=== PATIENT | male | born 1960 | race Caucasian/White ===

== ENCOUNTER → 2023-08-18 | Outpatient (CLI) | payer BC | LOC: LAB SHORT 17:38 → LAB 17:38 | DX: L08.9 Local infection of the skin and subcutaneous tissue, unspecified (principal) | CPT/HCPCS: 87070; 87077; 87205 ==

== ENCOUNTER → 2023-09-01 | Outpatient (CLI) | payer BC | LOC: LAB SHORT 17:18 → LAB 17:18 | DX: L08.9 Local infection of the skin and subcutaneous tissue, unspecified (principal) | CPT/HCPCS: 87070; 87205 ==

== ENCOUNTER → 2024-11-03 | Outpatient (CLI) | payer MEDICARE | LOC: LAB 17:38 → LAB SHORT 17:38 | DX: R31.9 Hematuria, unspecified (principal) | CPT/HCPCS: 87077; 87086; 87186 ==

== ENCOUNTER → 2025-01-17 | Outpatient (CLI) | payer MEDICARE ==
[2025-01-18 10:21] LABS: Source, Urine Clean Catch
[2025-01-18 11:16] LABS: Glucose Qualitative, Urine Neg (Normal); Ketones, Urine Neg (Neg); Leukocyte Esterase, Urine Neg (Neg); Nitrite, Urine Neg (Neg); Protein, Urine Neg (Neg); Specific Gravity, Urine 1.015 (1.003-1.022); Urobilinogen, Urine NORM (Normal)
[2025-01-18 11:17] LABS: Appearance, Urine Hazy (Clear); Bilirubin, Urine Neg (Neg); Blood, Urine 2+ (Neg); Color, Urine Yellow (P-Yellow); Squamous Epithelial Cells Few /hpf (Few); White Blood Cells, Urine 0-2 /hpf (0-5)
== END ==
LOC: LAB SHORT 17:00 → LAB 17:00 → LAB SHORT 01-18 08:22
PROVIDERS: Physician Assistant
DX: R31.0 Gross hematuria (principal)
CPT/HCPCS: 81001; 87086

== ENCOUNTER 2025-07-20 06:03 | Inpatient (IN) | payer MEDICARE ==
[~2025-07-20] VITALS: Ht 172.7 cm; Wt 76.7 kg
[2025-07-20 06:35] LABS: BASOPHILS ABSOLUTE AUTO 0.01 K/mm3 (0.00-0.23); BASOPHILS PERCENT AUTO 0 % (0-2); EOSINOPHILS ABSOLUTE AUTO 0.01 K/mm3 (0.00-0.68); EOSINOPHILS PERCENT AUTO 0 % (0-6); Hematocrit 46.0 % (37.0-53.0); Hemoglobin 14.4 g/dL (13.5-17.5); IMMATURE GRAN ABSOLUTE AUTO 0.04 K/mm3 (0.00-0.10); IMMATURE GRAN PERCENT AUTO 1 % (0-1); LYMPHOCYTES ABSOLUTE AUTO 0.34 K/mm3 (0.84-5.20); LYMPHOCYTES PERCENT AUTO 4 % (21-46); MONOCYTES ABSOLUTE AUTO 0.65 K/mm3 (0.16-1.47); MONOCYTES PERCENT AUTO 8 % (4-13); Mean Corpuscular HGB Conc 31.3 g/dL (31.5-36.5); Mean Corpuscular Volume 79 fL (80-100); NEUTROPHILS ABSOLUTE AUTO 7.11 K/mm3 (1.96-9.15); NEUTROPHILS PERCENT AUTO 87 % (41-73); NRBC ABSOLUTE 0.00 K/mm3 (0.00-0.02); NRBC Auto 0.0 /100 WBC (0.0-0.2); Platelet Count 329 K/mm3 (150-400); RDW Coefficient Variation 22.8 % (11.7-14.2); RDW Standard Deviation 62.8 fL (35.1-46.3)
[2025-07-20] MEDS ORDERED: NS 1,000 ML IV SCH ×2 (06:45→11:35)
[2025-07-20 06:57] LABS: Alanine Aminotransfer (ALT/SGP 20.0 U/L (12-78); Albumin, Blood 3.6 g/dL (3.4-5.0); Albumin/Globulin Ratio 0.9 (0.8-1.8); Anion Gap 21.0 mmol/L (3-11); Aspartate Aminotrans (AST/SGOT 30.0 U/L (12-37); Bilirubin, Total 1.3 mg/dL (0.1-1.0); Blood Urea Nitrogen 18.0 mg/dL (8-24); CO2, Blood 18.0 mmol/L (21-32); Calcium, Blood 9.9 mg/dL (8.5-10.1); Chloride, Blood 104.0 mmol/L (98-108); Creatinine, Blood 0.98 mg/dL (0.60-1.20); Globulin, Blood 4.1 g/dL (2.2-4.0); Glucose, Blood 146.0 mg/dL (70-99); Magnesium, Blood 2.2 mg/dL (1.6-2.4); Potassium, Blood 4.5 mmol/L (3.5-5.5); Sodium, Blood 138.0 mmol/L (136-145); Total Protein, Blood 7.7 g/dL (6.4-8.2)
[2025-07-20] MEDS ORDERED: FLU VACC TS2025-26(6MOS UP)/PF 45 MCG/0.5 ML SYRINGE IM SCH (09:05)
[2025-07-20] MEDS ORDERED: HydrALAZINE HCl 20 MG / ML 1ML Vial IV PRN (11:35)
[2025-07-20 11:55] VITALS: BP 158/87
[2025-07-20 13:00] LABS: LDL/HDL RATIO 2.5
[2025-07-20 13:01] LABS: CHOL/HDL RATIO 4.6; Cholesterol 175 mg/dL (50-200); HDL Cholesterol 38 mg/dL (>39); Low Density Lipoprotein Chol 96 mg/dL (0-110); Triglycerides 205 mg/dL (30-160); Very Low Density Lipoprot Chol 41 mg/dL (6-32)
--- NOTE | 2025-07-20 13:05 | NUR ---
PT ARRIVED TO UNIT APPROXIMATELY 1100. PT IS AOX4. NO C/O CHEST PAIN/PRESSURE. NO C/O PAIN. SKIN ASSESSMENT COMPLETED WITH 2ND RN. WOUNDS AND BRUISING PHOTOGRAPED, DOCUMENTED AND PLACED IN CHART. PT ON RA, REPORTS NO O2 USE AT HOME. PT WEARING GLASSES AND HAS FULL SET OF DENTURES. URINAL AT BEDSIDE AND PT ABLE TO USE WITHOUT ASSISTANCE. CALL LIGHT WITHIN REACH AND PT ABLE TO MAKE NEEDS KNOWN.
[2025-07-20 14:52] LABS: Anion Gap 15.0 mmol/L (3-11); Blood Urea Nitrogen 18.0 mg/dL (8-24); CO2, Blood 21.0 mmol/L (21-32); Calcium, Blood 9.1 mg/dL (8.5-10.1); Chloride, Blood 106.0 mmol/L (98-108); Creatinine, Blood 0.83 mg/dL (0.60-1.20); Glucose, Blood 124.0 mg/dL (70-99); Potassium, Blood 3.1 mmol/L (3.5-5.5); Sodium, Blood 139.0 mmol/L (136-145)
[2025-07-20 15:42] VITALS: BP 153/90
--- NOTE | 2025-07-20 16:12 | NUR ---
home med rec this rn called [facility] and requested for home med rec to be faxed over at 1200 on 07/20/25. home med rec not complete.
--- NOTE | 2025-07-20 16:21 | NUR ---
update-home med rec this rn called [facility] again at 1622 to ask about the med rec and the administrative receptionist said she sent an urgent message back.
[2025-07-20] MEDS ORDERED: Insulin Regular 100 UNIT/ML 10ML Vial SC SCH (16:30)
[2025-07-20] MEDS ORDERED: ATOR20 PO (17:45)
[2025-07-20] MEDS ORDERED: AMLO10 PO (17:45)
[2025-07-20] MEDS ORDERED: BASAGLAR K100 UNIT/1 SC (17:46)
[2025-07-20] MEDS ORDERED: TAMS.4ER PO (17:50)
[2025-07-20] MEDS ORDERED: ZESTORETIC 20-121 EA PO (17:50)
[2025-07-20] MEDS ORDERED: METF500 PO (17:50)
--- NOTE | 2025-07-20 18:03 | NUR ---
SHIFT SUMMARY VSS. NO C/O PAIN. NO C/O CHEST PAIN/PRESSURE. TROPE ELEVATED BUT TRENDING DOWN (LAST 316). URINAL AT BEDSIDE AND PT ABLE TO USE WITHOUT ASSISTANCE. PT HAS FULL DENTURES AND GLASSES IN PLACE. AOX4. POTASSIUM 3.1. PT GIVEN 40MEQ PO POTASSIUM. PT RESTING COMFORTABLY IN BED. CALL LIGHT WITHIN REACH AND ABLE TO MAKE ALL NEEDS KNOWN.
[2025-07-20 19:40] LABS: Anion Gap 15.0 mmol/L (3-11); Blood Urea Nitrogen 16.0 mg/dL (8-24); CO2, Blood 22.0 mmol/L (21-32); Calcium, Blood 9.2 mg/dL (8.5-10.1); Chloride, Blood 103.0 mmol/L (98-108); Creatinine, Blood 0.85 mg/dL (0.60-1.20); Glucose, Blood 107.0 mg/dL (70-99); Potassium, Blood 3.2 mmol/L (3.5-5.5); Sodium, Blood 137.0 mmol/L (136-145)
[2025-07-20 19:52] VITALS: BP 125/89
[2025-07-20 23:03] VITALS: BP 126/81
[2025-07-21 03:19] VITALS: BP 142/95
[2025-07-21 04:10] LABS: BASOPHILS ABSOLUTE AUTO 0.00 K/mm3 (0.00-0.23); BASOPHILS PERCENT AUTO 0 % (0-2); EOSINOPHILS ABSOLUTE AUTO 0.01 K/mm3 (0.00-0.68); EOSINOPHILS PERCENT AUTO 0 % (0-6); Hematocrit 39.9 % (37.0-53.0); Hemoglobin 12.8 g/dL (13.5-17.5); IMMATURE GRAN ABSOLUTE AUTO 0.01 K/mm3 (0.00-0.10); IMMATURE GRAN PERCENT AUTO 0 % (0-1); LYMPHOCYTES ABSOLUTE AUTO 0.66 K/mm3 (0.84-5.20); LYMPHOCYTES PERCENT AUTO 12 % (21-46); MONOCYTES ABSOLUTE AUTO 0.39 K/mm3 (0.16-1.47); MONOCYTES PERCENT AUTO 7 % (4-13); Mean Corpuscular HGB Conc 32.1 g/dL (31.5-36.5); Mean Corpuscular Volume 80 fL (80-100); NEUTROPHILS ABSOLUTE AUTO 4.32 K/mm3 (1.96-9.15); NEUTROPHILS PERCENT AUTO 80 % (41-73); NRBC ABSOLUTE 0.00 K/mm3 (0.00-0.02); NRBC Auto 0.0 /100 WBC (0.0-0.2); Platelet Count 208 K/mm3 (150-400); RDW Coefficient Variation 22.6 % (11.7-14.2); RDW Standard Deviation 63.3 fL (35.1-46.3)
[2025-07-21 04:51] LABS: Anion Gap 14.0 mmol/L (3-11); Blood Urea Nitrogen 15.0 mg/dL (8-24); CO2, Blood 22.0 mmol/L (21-32); Calcium, Blood 8.7 mg/dL (8.5-10.1); Chloride, Blood 105.0 mmol/L (98-108); Creatinine, Blood 0.75 mg/dL (0.60-1.20); Glucose, Blood 85.0 mg/dL (70-99); Potassium, Blood 3.7 mmol/L (3.5-5.5); Sodium, Blood 137.0 mmol/L (136-145); Thyroid Stimulating Hormone 0.579 uIU/mL (0.360-4.800)
--- NOTE | 2025-07-21 05:14 | NUR ---
SHIFT SUMMARY A/OX4, VERBALIZES NEEDS, COOPERATIVE WITH CARE, DENIES PAIN. ON ROOM AIR, SATS ABOVE 95%. ON CONTINUOUS CARDIAC TELEMETRY, IN A SINUS RHYTHM, VSS. PT DENIES CHEST PAIN/PRESSURE. NO ACUTE EVENTS OVERNIGHT. ECHO AND STRESS TEST TO BE COMPLETED THIS MORNING.
[2025-07-21 07:20] VITALS: BP 144/97
[2025-07-21 07:22] LABS: Source, Urine Clean Catch
[2025-07-21 07:39] LABS: Glucose Qualitative, Urine Neg (Neg); Ketones, Urine 4+ (Neg); Leukocyte Esterase, Urine Neg (Neg); Protein, Urine 3+ (Neg); Specific Gravity, Urine 1.020 (1.003-1.022); Urobilinogen, Urine 1+ (Normal)
[2025-07-21 07:47] LABS: Bilirubin, Urine 1+ (Neg); Color, Urine Amber (P-Yellow)
[2025-07-21 07:48] LABS: Red Blood Cells, Urine 0-2 /hpf (0-2); White Blood Cells, Urine 0-2 /hpf (0-5)
[2025-07-21] MEDS ORDERED: Insulin Glargine 100 Unit/ML 3 ML SYR SC SCH (09:00)
[2025-07-21] MEDS ORDERED: Enoxaparin 40 MG/0.4 ML SYR SC SCH (09:00)
[2025-07-21] MEDS ORDERED: Ondansetron HCl 2 MG / ML 2ML Vial IV PRN (09:35)
--- NOTE | 2025-07-21 10:19 | NUR ---
am note this rn assumed care at 0700. vital signs stable. tele sinus rhythm 60-70s. patient is alert and oriented x4. neuro is intact. perrla. patient is able to make needs known and uses call light. patient denies pain, chest pain/pressure or shortness of breath. patient has scattered bruises on arms for fall at home, and skin tear on left elbow area and right hip hematoma. see shift assessment for further detials. patient with no documented urine throughout the night and this rn bladder scanned and showed >610. patient unable to void. this rn straight cath the patient and had 500 out from bladder. patient has not voided since straight cath this mornign at 0730. patient having one day stress test today and is waiting for last set of pictures to be done. plan of care is up to date
--- NOTE | 2025-07-21 12:23 | NUR ---
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 patient was no aware of this but was aware of the cancer spreading to his liver and lungs. 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
[2025-07-21 15:34] VITALS: BP 105/77
--- NOTE | 2025-07-21 18:15 | NUR ---
shift summary patient medical stauts with tele. vital signs remain stable. no acute changes this shift. see previous notes. plan for mri tomorrow as unable to get to it today and okay'd by md russell to do it tomorrow.
[2025-07-21 20:00] VITALS: BP 111/78
[2025-07-21 23:44] VITALS: BP 117/84
[2025-07-22 04:31] VITALS: BP 106/76
[2025-07-22 04:38] LABS: BASOPHILS ABSOLUTE AUTO 0.00 K/mm3 (0.00-0.23); BASOPHILS PERCENT AUTO 0 % (0-2); EOSINOPHILS ABSOLUTE AUTO 0.03 K/mm3 (0.00-0.68); EOSINOPHILS PERCENT AUTO 1 % (0-6); Hematocrit 38.7 % (37.0-53.0); Hemoglobin 12.1 g/dL (13.5-17.5); IMMATURE GRAN ABSOLUTE AUTO 0.01 K/mm3 (0.00-0.10); IMMATURE GRAN PERCENT AUTO 0 % (0-1); LYMPHOCYTES ABSOLUTE AUTO 0.87 K/mm3 (0.84-5.20); LYMPHOCYTES PERCENT AUTO 21 % (21-46); MONOCYTES ABSOLUTE AUTO 0.30 K/mm3 (0.16-1.47); MONOCYTES PERCENT AUTO 7 % (4-13); Mean Corpuscular HGB Conc 31.3 g/dL (31.5-36.5); Mean Corpuscular Volume 80 fL (80-100); NEUTROPHILS ABSOLUTE AUTO 2.95 K/mm3 (1.96-9.15); NEUTROPHILS PERCENT AUTO 71 % (41-73); NRBC ABSOLUTE 0.00 K/mm3 (0.00-0.02); NRBC Auto 0.0 /100 WBC (0.0-0.2); Platelet Count 173 K/mm3 (150-400); RDW Coefficient Variation 22.4 % (11.7-14.2); RDW Standard Deviation 64.5 fL (35.1-46.3)
[2025-07-22 05:00] LABS: Anion Gap 10.0 mmol/L (3-11); Blood Urea Nitrogen 12.0 mg/dL (8-24); CO2, Blood 26.0 mmol/L (21-32); Calcium, Blood 8.9 mg/dL (8.5-10.1); Chloride, Blood 101.0 mmol/L (98-108); Creatinine, Blood 0.67 mg/dL (0.60-1.20); Glucose, Blood 87.0 mg/dL (70-99); Potassium, Blood 3.6 mmol/L (3.5-5.5); Sodium, Blood 133.0 mmol/L (136-145)
--- NOTE | 2025-07-22 05:51 | NUR ---
SHIFT SUMMARY A/OX4, VERBALIZES NEEDS, COOPERATIVE WITH CARE, DENIES PAIN. ON ROOM AIR, SATS ABOVE 95%. ON CONTINUOUS CARDIAC TELEMETRY, IN A SINUS RHYTHM, VSS. PT DENIES CHEST PAIN/PRESSURE. PT IS STILL RETAINING URINE AND DENIES ANY SENSATION OF NEEDING TO URINATE. BLADDER SCANNED AT START OF SHIFT WITH 500+ML IN BLADDER. STRAIGHT CATHED WITH 600ML OUT. THIS WAS THE THIRD STRAIGHT CATH IN 24 HOURS. BLADDER SCANNED AGAIN AROUND 0000, SHOWING ONLY 135ML RETAINED. THIRD BLADDER SCAN AT THE END OF SHIFT SHOWED 309 IN BLADDER. PT ENDORSES POOR APPETITE AND LOW ORAL INTAKE.
[2025-07-22 07:26] VITALS: BP 106/74
[2025-07-22 11:10] VITALS: BP 96/68
[2025-07-22] MEDS ORDERED: NS 500 ML IV ONE (11:40)
[2025-07-22 16:15] VITALS: BP 108/80
--- NOTE | 2025-07-22 17:07 | NUR ---
SHIFT SUMMARY: PT ALERT, ORIENTED TO SELF, PLACE, AND SURROUNDINGS. FORGETFUL AT TIMES. BED ALARM ON FOR SAFETY. STRENGTH EQUAL BILATERALLY. BP AND HR STABLE. DENIES CP/PRESSURE. PULSES STRONG AND EQUAL THROUGHOUT. AFEBRILE. SPO2 >96% ON ROOM AIR. LUNG SOUNDS CLEAR THROUGHOUT. ABD SOFT, NON TENDER, BOWEL SOUNDS +. NO BM THIS SHIFT. BROWN CATHETER PLACED THIS AFTERNOON DUE TO RETENTION. PATENT AND DRAINING TO GRAVITY. REPOS Q2 TO MAINTAIN SKIN INTEGRITY. MUTIPLE BRUISES AND SCABS T/O. PT WITHDRAWN, NEEDING ENCOURAGMENT IN PARTICIPATION. PALLTATIVE CARE ORDERED. BED IN LOW, CALL LIGHT IN REACH, WILL REPORT TO ONCOMING RN.
[2025-07-22 19:20] VITALS: BP 103/74
[2025-07-23 03:50] VITALS: BP 108/81
[2025-07-23 04:20] LABS: BASOPHILS ABSOLUTE AUTO 0.00 K/mm3 (0.00-0.23); BASOPHILS PERCENT AUTO 0 % (0-2); EOSINOPHILS ABSOLUTE AUTO 0.11 K/mm3 (0.00-0.68); EOSINOPHILS PERCENT AUTO 3 % (0-6); Hematocrit 37.1 % (37.0-53.0); Hemoglobin 11.9 g/dL (13.5-17.5); IMMATURE GRAN ABSOLUTE AUTO 0.01 K/mm3 (0.00-0.10); IMMATURE GRAN PERCENT AUTO 0 % (0-1); LYMPHOCYTES ABSOLUTE AUTO 0.81 K/mm3 (0.84-5.20); LYMPHOCYTES PERCENT AUTO 22 % (21-46); MONOCYTES ABSOLUTE AUTO 0.24 K/mm3 (0.16-1.47); MONOCYTES PERCENT AUTO 7 % (4-13); Mean Corpuscular HGB Conc 32.1 g/dL (31.5-36.5); Mean Corpuscular Volume 80 fL (80-100); NEUTROPHILS ABSOLUTE AUTO 2.46 K/mm3 (1.96-9.15); NEUTROPHILS PERCENT AUTO 68 % (41-73); NRBC ABSOLUTE 0.02 K/mm3 (0.00-0.02); NRBC Auto 0.6 /100 WBC (0.0-0.2); Platelet Count 168 K/mm3 (150-400); RDW Coefficient Variation 22.1 % (11.7-14.2); RDW Standard Deviation 63.5 fL (35.1-46.3)
[2025-07-23 04:39] LABS: Anion Gap 8.0 mmol/L (3-11); Blood Urea Nitrogen 12.0 mg/dL (8-24); CO2, Blood 28.0 mmol/L (21-32); Calcium, Blood 8.6 mg/dL (8.5-10.1); Chloride, Blood 102.0 mmol/L (98-108); Creatinine, Blood 0.64 mg/dL (0.60-1.20); Glucose, Blood 86.0 mg/dL (70-99); Potassium, Blood 3.5 mmol/L (3.5-5.5); Sodium, Blood 134.0 mmol/L (136-145)
--- NOTE | 2025-07-23 06:05 | NUR ---
NOC SHIFT SUMMARY PT IS ALERT, ORIENTATED TO SELF, PLACE AND SITUATION. PT IS WITHDRAWN AND REFUSING TO PARTICIPATE IS CARES, "WANTS TO SLEEP". HE IS REFUSING CARE INTERMIT. BED ALARM ON FOR SAFETY. BP AND HR STABLE. DENIES CHEST PAIN OR PRESSURE. SPO2 >95% ON ROOM AIR, BREATHING EVEN AND UNLABORED. AFEBRILE. NO BM THIS SHIFT. BROWN CATH IN PLACE DRAINING TO GRAVITY. LIEN CHANGED WHEN PT STOOF UP FOR DAILY WEIGHT. PT WITHDRAWN AND NOT WANTING TO CONVERSATE OR PARTICATE WITH CARE. BED IN LOWEST POSTION, CALL LIGHT IN REACH. WILL REPORT TO ON COMING RN.
[2025-07-23 07:15] VITALS: BP 106/63
[2025-07-23 12:30] VITALS: BP 101/59
[2025-07-23 15:58] VITALS: BP 114/78
--- NOTE | 2025-07-23 16:14 | NUR ---
PALLIATIVE CARE VISIT: CONSULT RECIEVED FOR ADVANCED CARE PLANNING. REVIEWED MEDICAL RECORD, SPOKE TO PRIMARY RN PRIOR TO VISIT. RN HAS CONCERNS PT WAS AGREEABLE TO DNR CODE STATUS WHEN DR. NAIR ROUNDED BUT NOW WANTS TO REMAIN FULL CODE. PT AGREEABLE TO PC VISIT AND IS ABLE TO HAVE MEANINGFUL CONVERSATION. SYMPTOMS: PT DENIES PAIN. STATES NAUSEA AND DIZZINESS CURRENTLY MANAGED WITH CURRENT MEDICATION REGIMEN. GOC: PT STATES HE IS DOING IMMUNOTHERAPY, DR. BELLO IS ONCOLOGIST, HE IS TOLERATING TREATMENT. PT REPORTS HE HAS HAD 2 SESSIONS OF TREATMENT. PT DECLINES NEED FOR PALLIATIVE CARE SERVICES IN OUT PATIENT SETTING. PT STATES HE HAS COMPLETED ADVANCE DIRECTIVE AND HIS FRIEND VIKAS IS HIS POA. HE DECLINES TO BRING COPY FOR HIS MEDICAL RECORD. DISCUSSED CODE STATUS. EDUCATED ON RISKS VS BENEFITS OF CPR. PT WISHES TO REMAIN FULL CODE. PT GOAL IS TO GO HOME AND RESUME IMMUNOTHERAPY. ADVISED PT TO REQUEST PALLIATIVE CARE IF ANY NEEDS/QUESTIONS OR CONCERNS ARISE. UPDATED PRIMARY RN WITH CODE STATUS.
--- NOTE | 2025-07-23 18:22 | NUR ---
ASSUMED CARE FROM PCU. PT ARRIVED A/O IN OWN BED. BROWN JUST REMOVED WILL MONITOR URINE OUTPUT, PT AWARE TO LET NURSE KNOW IF HAVING ISSUES URINATING.
--- NOTE | 2025-07-23 18:23 | NUR ---
SHIFT SUMMARY/UNIT TRANSFER PATIENT IS ALERT AND ORIENTED, ABLE TO FOLLOW COMMANDS AND MAKE NEEDS KNOWN. VSS, TELE IN PLACE AT START OF SHIFT, HR IN 60'S, SPO2 >90% ON RA, PATIENT DENIES PRESENCE OF CHEST PAIN, PRESSURE OR SHORTNESS OF BREATH. PATIENT REPORTS INTERMITTENT NAUSEA THROUGHOUT SHIFT AND LACK OF APPETITE, PATIENT MEDICATED PER EMAR FOR NAUSEA. BROWN CATHETER IN PLACE, PATENT, AND DRAINING TO GRAVITY PRIOR TO REMOVAL. BROWN CATHETER REMOVED PER PROVIDER ORDER, RED TINGED URINE PRESENT IN TUBING UPON REMOVAL, PATIENT REPORTS UNINTENTIONALLY TUGGING ON BROWN CATHETER PRIOR TO REMOVAL. PATIENT IS WEAK IN BILATERAL LOWER EXTREMITIES, PATIENT ENCOURAGED TO PARTICIPATE IN ASSITED MOBILITY FOR MAXIMUM INDEPENDENCE, PATIENT DECLINED. PT/OT EVALUATIONS DONE TODAY, SEE NOTE FOR RECOMMENDATIONS. PATIENT LEFT UNIT AT 1810 VIA HOSPITAL BED WITH ALL PERSONAL BELONGINGS. PATIENT IN NO SIGNS OF DISTRESS. REPORT GIVEN TO MED FLOOR RN, ALL QUESTIONS ANSWERED.
[2025-07-23 19:18] VITALS: BP 105/76
[2025-07-23] MEDS ORDERED: Nitrofurantoin/Nitrofuran Mac 100 MG Cap PO SCH (21:00)
[2025-07-24 04:56] VITALS: BP 121/84
[2025-07-24 05:42] LABS: BASOPHILS ABSOLUTE AUTO 0.01 K/mm3 (0.00-0.23); BASOPHILS PERCENT AUTO 0 % (0-2); EOSINOPHILS ABSOLUTE AUTO 0.08 K/mm3 (0.00-0.68); EOSINOPHILS PERCENT AUTO 2 % (0-6); Hematocrit 37.4 % (37.0-53.0); Hemoglobin 12.0 g/dL (13.5-17.5); IMMATURE GRAN ABSOLUTE AUTO 0.02 K/mm3 (0.00-0.10); IMMATURE GRAN PERCENT AUTO 1 % (0-1); LYMPHOCYTES ABSOLUTE AUTO 0.83 K/mm3 (0.84-5.20); LYMPHOCYTES PERCENT AUTO 24 % (21-46); MONOCYTES ABSOLUTE AUTO 0.25 K/mm3 (0.16-1.47); MONOCYTES PERCENT AUTO 7 % (4-13); Mean Corpuscular HGB Conc 32.1 g/dL (31.5-36.5); Mean Corpuscular Volume 80 fL (80-100); NEUTROPHILS ABSOLUTE AUTO 2.28 K/mm3 (1.96-9.15); NEUTROPHILS PERCENT AUTO 66 % (41-73); NRBC ABSOLUTE 0.00 K/mm3 (0.00-0.02); NRBC Auto 0.0 /100 WBC (0.0-0.2); Platelet Count 148 K/mm3 (150-400); RDW Coefficient Variation 22.0 % (11.7-14.2); RDW Standard Deviation 62.6 fL (35.1-46.3)
--- NOTE | 2025-07-24 05:53 | NUR ---
SHIFT SUMMARY A&OX 4. ABLE TO MAKE ALL NEEDS KNOWN. PT WAS ABLE TO VOID IN URINAL OVERNIGHT. PT DENIES PAIN. RESTED THROUGH THE NIGHT. CURRENTLY IN BED AT LOWEST POSITION WITH CALL LIGHT WITHIN REACH.
[2025-07-24 06:02] LABS: Alanine Aminotransfer (ALT/SGP 13.0 U/L (12-78); Albumin, Blood 2.6 g/dL (3.4-5.0); Albumin/Globulin Ratio 0.9 (0.8-1.8); Anion Gap 8.0 mmol/L (3-11); Aspartate Aminotrans (AST/SGOT 20.0 U/L (12-37); Bilirubin, Total 0.6 mg/dL (0.1-1.0); Blood Urea Nitrogen 13.0 mg/dL (8-24); CO2, Blood 28.0 mmol/L (21-32); Calcium, Blood 8.5 mg/dL (8.5-10.1); Chloride, Blood 103.0 mmol/L (98-108); Creatinine, Blood 0.66 mg/dL (0.60-1.20); Globulin, Blood 2.9 g/dL (2.2-4.0); Glucose, Blood 74.0 mg/dL (70-99); Magnesium, Blood 1.8 mg/dL (1.6-2.4); Phosphorus, Blood 1.2 mg/dL (2.5-4.9); Potassium, Blood 3.4 mmol/L (3.5-5.5); Sodium, Blood 136.0 mmol/L (136-145); Total Protein, Blood 5.5 g/dL (6.4-8.2)
[2025-07-24 07:38] VITALS: BP 102/69
[2025-07-24 14:56] VITALS: BP 106/95
--- NOTE | 2025-07-24 18:09 | NUR ---
NOTE PT NEEDING ENCOURAGEMENT TO GET OOB. PT DID SHOWER. REFUSED BREAKFAST. ATE LUNCH THEN COMPLAINED HIS STOMACH WAS UPSET. REFUSED MEDICATION. REDRESSED HIS LEFT ELBOW WITH DUODERM. PT HAS A SCAB ON HIS BUTTOCK OOZING. HE REFUSED A DRESSING. VOIDING POST BROWN REMOVEL. WHEN UP PT COMPLAINED OF FEELING WEAK AND DIZZY. CHECKED VSS. CARE ONGOING.
[2025-07-24 20:05] VITALS: BP 112/84
[2025-07-25 03:46] VITALS: BP 102/74
[2025-07-25 05:48] LABS: Anion Gap 13.0 mmol/L (3-11); Blood Urea Nitrogen 13.0 mg/dL (8-24); CO2, Blood 24.0 mmol/L (21-32); Calcium, Blood 8.7 mg/dL (8.5-10.1); Chloride, Blood 101.0 mmol/L (98-108); Creatinine, Blood 0.69 mg/dL (0.60-1.20); Glucose, Blood 81.0 mg/dL (70-99); Potassium, Blood 3.6 mmol/L (3.5-5.5); Sodium, Blood 134.0 mmol/L (136-145)
[2025-07-25 07:35] VITALS: BP 111/89
--- NOTE | 2025-07-25 10:35 | NUR ---
PT REQUESTING TO TAKE MORNING MEDICATIONS AT 1200.
--- NOTE | 2025-07-25 11:41 | NUR ---
BLOOD CLOTPT NOTED TO HAVE MAROON LIQUID IN HIS PULL UP. HE THEN PASSED A LARGE GELATENIOUS MAROON BLOOD CLOT PER RECTUM IN THE SHOWER. DR ZENDEJAS CALLED. ORDERS RECEIVED. VSS. PT ABLE TO COMPLETE SHOWER AND AMBULATE BACK TO BED. CARE ONGOING.
--- NOTE | 2025-07-25 11:49 | NUR ---
AT APPROX 11AM, THIS RN ENTERED THE PTS ROOM AND OBSERVED CHARLEY RED BLOOD CLOTS COMING FROM THE PTS ANUS AND LEAKED ONTO HIS BED. PT AMBULATED TO SHOWER WITH SBA, GAIT BELT AND FWW TO THE SHOWER AND CLEANED PT UP. PT HAD A BOWEL MOVEMENT IN THE SHOWER, IT WAS PINEDA AND FORMED. CLEAN BEDDING APPLIED TO BED PT AMBULATED WITH SBA, GAIT BELT, AND FWW BACK TO BED. CALL LIGHT WITHIN REACH OF PT. HAS BEEN NOTIFIED.
[2025-07-25 12:33] LABS: Hematocrit 41.5 % (37.0-53.0); Hemoglobin 13.4 g/dL (13.5-17.5)
[2025-07-25 15:15] VITALS: BP 105/78
--- NOTE | 2025-07-25 15:34 | NUR ---
MET WITH [facility] THIS AFTERNOON PER BEDSIDE RN AND DR. NAIR'S REQUEST. CARE TEAM REPORT, PT IS NON-COMPLIANT WITH INTERDISCIPLINARY TEAMS. [facility] REPORTS HE HAS BEEN WORKING WITH PT/OT. THERAPY ASSESSMENTS INDICATE PT HAS DECLINED TO WORK WITH THEM WHEN THEY ARE AVAILABLE TO WORK WITH HIM. [facility] ONCOLOGY REPORT LAST IMMUNOTHERAPY INFUSION WAS ON 05/31/25. [facility] MISSED HIS APPT WITH AND IMMUNOTHERAPY APPT ON 07/12/25. THIS PC RN EDUCATED PT ON THE IMPORTANCE OF PARTICIPATION IN HIS CARES IF HE WANTS TO IMPROVE. [facility] STATES, "I'LL WORK WITH THEM". THIS PC RN UPDATED PRIMARY RN, CARE MANAGEMENT OF VISIT RESULTS.
--- NOTE | 2025-07-25 18:25 | NUR ---
SHIFT SUMMARY PT IS A&OX4, PLEASANT AND COOPERATIVE WITH CARE. PT ENCOURAGED TO WORK WITH PT AND OT TODAY, WORKED WITH OT. PT UP IN CHAIR EARLIER THIS EVENING. PT DID EXPERIENCE NAUSEA THIS MORNING AND WAS MEDICATED WITH ZOFRAN. SEE NOTE ABOUT ABOUT ACUTE CHANGE EARLIER IN THE SHIFT, MARTELL HAS BEEN D/C'd AT THIS TIME. CALL LIGHT WITHIN REACH OF PT, PT CALLS APPROPRIATELY.
[2025-07-25 20:00] VITALS: BP 93/66
--- NOTE | 2025-07-25 21:09 | NUR ---
BP MED HELD THIS PM DUE TO BP 93/66. ASYMPTOMATIC. WILL RECHECK BP LATER, AND IF BP UP, WILL ADMIN MED
[2025-07-26 06:00] VITALS: BP 110/62
[2025-07-26 06:40] LABS: BASOPHILS ABSOLUTE AUTO 0.01 K/mm3 (0.00-0.23); BASOPHILS PERCENT AUTO 0 % (0-2); EOSINOPHILS ABSOLUTE AUTO 0.03 K/mm3 (0.00-0.68); EOSINOPHILS PERCENT AUTO 1 % (0-6); Hematocrit 37.3 % (37.0-53.0); Hemoglobin 11.9 g/dL (13.5-17.5); IMMATURE GRAN ABSOLUTE AUTO 0.02 K/mm3 (0.00-0.10); IMMATURE GRAN PERCENT AUTO 0 % (0-1); LYMPHOCYTES ABSOLUTE AUTO 0.62 K/mm3 (0.84-5.20); LYMPHOCYTES PERCENT AUTO 13 % (21-46); MONOCYTES ABSOLUTE AUTO 0.41 K/mm3 (0.16-1.47); MONOCYTES PERCENT AUTO 8 % (4-13); Mean Corpuscular HGB Conc 31.9 g/dL (31.5-36.5); Mean Corpuscular Volume 79 fL (80-100); NEUTROPHILS ABSOLUTE AUTO 3.88 K/mm3 (1.96-9.15); NEUTROPHILS PERCENT AUTO 78 % (41-73); NRBC ABSOLUTE 0.02 K/mm3 (0.00-0.02); NRBC Auto 0.4 /100 WBC (0.0-0.2); Platelet Count 165 K/mm3 (150-400); RDW Coefficient Variation 21.5 % (11.7-14.2); RDW Standard Deviation 61.7 fL (35.1-46.3)
[2025-07-26 07:13] LABS: Alanine Aminotransfer (ALT/SGP 13.0 U/L (12-78); Albumin, Blood 2.6 g/dL (3.4-5.0); Albumin/Globulin Ratio 0.8 (0.8-1.8); Anion Gap 10.0 mmol/L (3-11); Aspartate Aminotrans (AST/SGOT 17.0 U/L (12-37); Bilirubin, Total 0.8 mg/dL (0.1-1.0); Blood Urea Nitrogen 15.0 mg/dL (8-24); CO2, Blood 26.0 mmol/L (21-32); Calcium, Blood 8.4 mg/dL (8.5-10.1); Chloride, Blood 102.0 mmol/L (98-108); Creatinine, Blood 0.7 mg/dL (0.60-1.20); Globulin, Blood 3.1 g/dL (2.2-4.0); Glucose, Blood 77.0 mg/dL (70-99); Magnesium, Blood 1.7 mg/dL (1.6-2.4); Phosphorus, Blood 1.3 mg/dL (2.5-4.9); Potassium, Blood 3.4 mmol/L (3.5-5.5); Sodium, Blood 135.0 mmol/L (136-145); Total Protein, Blood 5.7 g/dL (6.4-8.2)
[2025-07-26 07:37] VITALS: BP 101/76
[2025-07-26 15:19] LABS: Campylobacter Sp Not Detected (NOT DETECT)
[2025-07-26 15:20] LABS: E. Coli O157 Not Detected (NOT DETECT); Enteroaggregative E. coli-EAEC Not Detected (NOT DETECT); Enteropathogenic E. coli-EPEC Not Detected (NOT DETECT); Enterotoxigenic E. coli-ETEC Not Detected (NOT DETECT); Salmonella Sp Not Detected (NOT DETECT); Shiga Toxin-prod E. coli-STEC Not Detected (NOT DETECT); Shigella/Enteroin E. coli-EIEC Not Detected (NOT DETECT); Vibrio Sp Not Detected (NOT DETECT)
[2025-07-26 16:24] VITALS: BP 99/70
--- NOTE | 2025-07-26 18:33 | NUR ---
SHIFT SUMMARY PATIENT A/OX3-4, ABLE TO MAKE NEEDS KNOWN. FORGETFUL INTERMITTENTLY, SLOW TO RESPOND, PLEASANT AND COOPERATIVE WITH CARE WITH LOW MOTIVATION TO COMPLETE ADLs. PATIENT COMPLAINING OF DIARRHEA THIS SHIFT, BUT REFUSING TO USE THE OTILET AND HAVING INCONTINENT EPISODES IN HIS ATTENDS. PATIENT ENCOURAGED TO USE THE BATHROOM AND BOWEL MOVEMENT OBSERVED BY STAFF SOLID, NO IMODIUM ADMINISTERED. CBGs DISCONTINUED AND ACHS INSULIN DISCONTINUED THIS SHIFT. PLAN TO DISCHARGE TO SKILLED FACILITY. NO OTHER CONCERNS AT THIS TIME, WILL CONTINUE TO MONITOR.
[2025-07-26 19:11] VITALS: BP 94/70
--- NOTE | 2025-07-27 04:43 | NUR ---
GASOLINE PUMP INSTALLER SUMMARY A/O X 3-4. REMAINS IN DROPLET ISOLATION PRECAUTIONS FOR COVID. RESPS REMAIN DIMINISHED PER AUSCULTATION. ON O2 PER NC, BUT OCCASIONALLY TAKES OFF THE NC AND SATS DROP, STAFF IN TO HELF PT WITH NC A FEW TIMES. TOLERATING MEDS WELL, IV ABX INFUSING PER MD ORDERS - SEE MAR FOR DETAILS. HAS BEEN RESTING QUIETLY OTHERWISE WITH FEW INTERRUPTIONS. CALL LIGHT IN REACH, RAILS UP X 2 AND BED IN LOW POSITION FOR SAFETY.
--- NOTE | 2025-07-27 04:53 | NUR ---
COMPUTER ASSISTANT SUMMARY BP LOW NORMAL, BP MED HELD. TOLERATED ALL OTHER MEDS WELL. WAS INCONT OF FECES AT SHIFT START WHILE IN RECLINER, ASSISTED TO BED WITH WALKER AND GAIT BELT AND CHANGED. TOLERATED ONLY ABOUT 5% OF DINNER. HAS BEEN RESTING QUIETLY WITH FEW INTERRUPTIONS SINCE HS. HOB ELEVATED FOR RESP COMFORT. REAILS UP X 2, CALL LIGHT IN REACH AND BED IN LOW POSITION FOR SAFETY. WILL CONT TO MONITOR.
[2025-07-27 05:12] VITALS: BP 107/79
[2025-07-27 05:45] LABS: BASOPHILS ABSOLUTE AUTO 0.01 K/mm3 (0.00-0.23); BASOPHILS PERCENT AUTO 0 % (0-2); EOSINOPHILS ABSOLUTE AUTO 0.06 K/mm3 (0.00-0.68); EOSINOPHILS PERCENT AUTO 1 % (0-6); Hematocrit 34.6 % (37.0-53.0); Hemoglobin 11.2 g/dL (13.5-17.5); IMMATURE GRAN ABSOLUTE AUTO 0.02 K/mm3 (0.00-0.10); IMMATURE GRAN PERCENT AUTO 0 % (0-1); LYMPHOCYTES ABSOLUTE AUTO 0.79 K/mm3 (0.84-5.20); LYMPHOCYTES PERCENT AUTO 17 % (21-46); MONOCYTES ABSOLUTE AUTO 0.30 K/mm3 (0.16-1.47); MONOCYTES PERCENT AUTO 6 % (4-13); Mean Corpuscular HGB Conc 32.4 g/dL (31.5-36.5); Mean Corpuscular Volume 80 fL (80-100); NEUTROPHILS ABSOLUTE AUTO 3.59 K/mm3 (1.96-9.15); NEUTROPHILS PERCENT AUTO 75 % (41-73); NRBC ABSOLUTE 0.00 K/mm3 (0.00-0.02); NRBC Auto 0.0 /100 WBC (0.0-0.2); Platelet Count 160 K/mm3 (150-400); RDW Coefficient Variation 21.5 % (11.7-14.2); RDW Standard Deviation 61.3 fL (35.1-46.3)
[2025-07-27 06:23] LABS: Alanine Aminotransfer (ALT/SGP 14.0 U/L (12-78); Albumin, Blood 2.4 g/dL (3.4-5.0); Albumin/Globulin Ratio 0.8 (0.8-1.8); Anion Gap 9.0 mmol/L (3-11); Aspartate Aminotrans (AST/SGOT 17.0 U/L (12-37); Bilirubin, Total 0.6 mg/dL (0.1-1.0); Blood Urea Nitrogen 13.0 mg/dL (8-24); CO2, Blood 26.0 mmol/L (21-32); Calcium, Blood 8.1 mg/dL (8.5-10.1); Chloride, Blood 102.0 mmol/L (98-108); Creatinine, Blood 0.68 mg/dL (0.60-1.20); Globulin, Blood 3.1 g/dL (2.2-4.0); Glucose, Blood 78.0 mg/dL (70-99); Potassium, Blood 3.0 mmol/L (3.5-5.5); Sodium, Blood 134.0 mmol/L (136-145); Total Protein, Blood 5.5 g/dL (6.4-8.2)
[2025-07-27 09:32] VITALS: BP 99/67
--- NOTE | 2025-07-27 10:07 | NUR ---
pt laying in bed awake working on breakfast, a/ox2-3, flat affect, did cooperate with taking po meds, but wants rest of care done after 11:00, lungs are clear t/o, resp even and unlabored, no cough noted, hrr, no edema noted, ppp+1, cap refill<3 sec, vs stable, afebrile, piv to rac site is clear and patent, btx4, abd flat soft nontender, incont of bowel/bladder, skin is frail with scattered scabs, tear to left elbown red sacrum, left elbow, rknee, is one person assist with gait belt but isn't motivated to help himself, araceli, call light in reach.
[2025-07-27 16:22] VITALS: BP 104/81
--- NOTE | 2025-07-27 16:50 | NUR ---
ASSUMED CARE OF PT APPROX 1300. REPORT RECIEVED FROM RUKHSANA STONER. NO ACUTE CHANGES THIS SHIFT. PT IS ALERT AND ORIENTED X2-3. CALM AND COOPERATIVE WITH CARE. INCONT OF STOOL. PT REPORTS UNABLE TO TELL IF BM IS COMING. THIS IS NEW FOR HIM. DENIES C/P AND PRESSURE, DENIES SOB. WOUND CARE PROVIDED TO PERINEUM THIN CLEAR BARRIER OINTMENT APPLIED TO RED EXORIATED GLUTEAL FOLDS AND RECTUM. 1 ASSIST FROM BED TO CHAIR. PT UNMOTIVATED TO ASSIST WITH CARES.
[2025-07-27 19:18] VITALS: BP 99/68
[2025-07-28 04:03] VITALS: BP 86/65
[2025-07-28 05:57] LABS: Albumin, Blood 2.4 g/dL (3.4-5.0); Anion Gap 11 mmol/L (3-11); Blood Urea Nitrogen 11 mg/dL (8-24); CO2, Blood 25 mmol/L (21-32); Calcium, Blood 8.8 mg/dL (8.5-10.1); Chloride, Blood 102 mmol/L (98-108); Creatinine, Blood 0.72 mg/dL (0.60-1.20); Glucose, Blood 81 mg/dL (70-99); Phosphorus, Blood 1.9 mg/dL (2.5-4.9); Potassium, Blood 3.4 mmol/L (3.5-5.5); Sodium, Blood 135 mmol/L (136-145)
[2025-07-28 06:32] VITALS: BP 111/92
[2025-07-28 07:31] VITALS: BP 105/73
--- NOTE | 2025-07-28 08:00 | NUR ---
pt resting in bed watching tv, a/ox 3-4, pleasant and cooperative with care, follows commands well, states he's doing crappy but not bad, lungs are clear with exp courseness, dim, on r/a, reports an occ cough with phlem but does't know what color, hrr, no edema noted, ppp+1, cap refill<3 sec, vs stable, afebrile, piv to lfa site is clear and patent, btx4, abd flat soft nontender, incont of bowel/bladder, briefs in place, skin has scatterd bruising with skin tear to elbow, bruising to rhip, madayana, one person assist, call light in reach.
[2025-07-28 15:45] VITALS: BP 110/78
--- NOTE | 2025-07-28 18:42 | NUR ---
pt got up to chair for a few hrs today, had two soft bm's, is incont of stool, asking for something to tighten him up, as he doesn't want to go anymore, explained to him the need to have bm's, and is not diarrhea, no further changes this shift. call light in reach.
[2025-07-28 19:53] VITALS: BP 107/76
[2025-07-29 03:47] VITALS: BP 97/68
[2025-07-29 05:06] LABS: BASOPHILS ABSOLUTE AUTO 0.01 K/mm3 (0.00-0.23); BASOPHILS PERCENT AUTO 0 % (0-2); EOSINOPHILS ABSOLUTE AUTO 0.04 K/mm3 (0.00-0.68); EOSINOPHILS PERCENT AUTO 1 % (0-6); Hematocrit 36.0 % (37.0-53.0); Hemoglobin 11.6 g/dL (13.5-17.5); IMMATURE GRAN ABSOLUTE AUTO 0.05 K/mm3 (0.00-0.10); IMMATURE GRAN PERCENT AUTO 1 % (0-1); LYMPHOCYTES ABSOLUTE AUTO 0.84 K/mm3 (0.84-5.20); LYMPHOCYTES PERCENT AUTO 17 % (21-46); MONOCYTES ABSOLUTE AUTO 0.25 K/mm3 (0.16-1.47); MONOCYTES PERCENT AUTO 5 % (4-13); Mean Corpuscular HGB Conc 32.2 g/dL (31.5-36.5); Mean Corpuscular Volume 79 fL (80-100); NEUTROPHILS ABSOLUTE AUTO 3.69 K/mm3 (1.96-9.15); NEUTROPHILS PERCENT AUTO 76 % (41-73); NRBC ABSOLUTE 0.02 K/mm3 (0.00-0.02); NRBC Auto 0.4 /100 WBC (0.0-0.2); Platelet Count 176 K/mm3 (150-400); RDW Coefficient Variation 21.6 % (11.7-14.2); RDW Standard Deviation 62.1 fL (35.1-46.3)
--- NOTE | 2025-07-29 05:20 | NUR ---
SHIFT SUMMARY NO ACUTE CHANGES THIS SHIFT, DENIED PAIN, BP'S REMAIN SOFT (107/76 & 97/68), SLEEPING AT THIS TIME, CALL LIGHT IN REACH, BED ALARM ACTIVE, WILL CONT TO MONITOR.
[2025-07-29 05:33] LABS: Albumin, Blood 2.4 g/dL (3.4-5.0); Anion Gap 8 mmol/L (3-11); Blood Urea Nitrogen 9 mg/dL (8-24); CO2, Blood 27 mmol/L (21-32); Calcium, Blood 8.4 mg/dL (8.5-10.1); Chloride, Blood 102 mmol/L (98-108); Creatinine, Blood 0.68 mg/dL (0.60-1.20); Glucose, Blood 80 mg/dL (70-99); Phosphorus, Blood 2.1 mg/dL (2.5-4.9); Potassium, Blood 3.3 mmol/L (3.5-5.5); Sodium, Blood 134 mmol/L (136-145)
[2025-07-29 07:18] VITALS: BP 93/79
--- NOTE | 2025-07-29 09:35 | NUR ---
pt sitting up in bed, awake watching tv and working on breakfast, he is more engaging than a few days ago, a/ox3-4, pleasant and cooperative with care, follows commands well, denies pain, lungs are clear a bit dim in bases, on r/a, no cough noted, hrr, no edema noted, ppp+1, cap refill<3 sec, vs stable, afebrile, piv to rfa site is clear and patent, btx4, abd flat soft nontender, incont of bowel/bladder, briefs in place, skin has multiple bruisings, pix in chart, madayana, one person assist, not motivated to move, araceli, call light in reach.
[2025-07-29 16:00] VITALS: BP 105/80
--- NOTE | 2025-07-29 18:15 | NUR ---
pt had a small loose stool this evening, has been up to the chair, no further changes this shift, call light in reach.
[2025-07-29 19:15] VITALS: BP 85/64
[2025-07-30] VITALS (8 sets, daily range): BP systolic 74–118; BP diastolic 56–82
--- NOTE | 2025-07-30 04:20 | NUR ---
SHIFT SUMMARY NO ACUTE CHANGES THIS SHIFT, VSS, DENIES PAIN, APPEARS TO BE SLEEPING COMFORTABLY AT THIS TIME, CALL LIGHT IN REACH, WILL CONT TO MONITOR UNTIL REPORT GIVEN TO ONCOMING NURSE.
[2025-07-30 05:09] LABS: BASOPHILS ABSOLUTE AUTO 0.02 K/mm3 (0.00-0.23); BASOPHILS PERCENT AUTO 0 % (0-2); EOSINOPHILS ABSOLUTE AUTO 0.02 K/mm3 (0.00-0.68); EOSINOPHILS PERCENT AUTO 0 % (0-6); Hematocrit 35.1 % (37.0-53.0); Hemoglobin 11.3 g/dL (13.5-17.5); IMMATURE GRAN ABSOLUTE AUTO 0.06 K/mm3 (0.00-0.10); IMMATURE GRAN PERCENT AUTO 1 % (0-1); LYMPHOCYTES ABSOLUTE AUTO 0.91 K/mm3 (0.84-5.20); LYMPHOCYTES PERCENT AUTO 17 % (21-46); MONOCYTES ABSOLUTE AUTO 0.27 K/mm3 (0.16-1.47); MONOCYTES PERCENT AUTO 5 % (4-13); Mean Corpuscular HGB Conc 32.2 g/dL (31.5-36.5); Mean Corpuscular Volume 79 fL (80-100); NEUTROPHILS ABSOLUTE AUTO 4.13 K/mm3 (1.96-9.15); NEUTROPHILS PERCENT AUTO 76 % (41-73); NRBC ABSOLUTE 0.00 K/mm3 (0.00-0.02); NRBC Auto 0.0 /100 WBC (0.0-0.2); Platelet Count 181 K/mm3 (150-400); RDW Coefficient Variation 21.5 % (11.7-14.2); RDW Standard Deviation 61.9 fL (35.1-46.3)
[2025-07-30 05:31] LABS: Albumin, Blood 2.4 g/dL (3.4-5.0); Anion Gap 9 mmol/L (3-11); Blood Urea Nitrogen 11 mg/dL (8-24); CO2, Blood 26 mmol/L (21-32); Calcium, Blood 8.5 mg/dL (8.5-10.1); Chloride, Blood 103 mmol/L (98-108); Creatinine, Blood 0.74 mg/dL (0.60-1.20); Glucose, Blood 78 mg/dL (70-99); Phosphorus, Blood 2.1 mg/dL (2.5-4.9); Potassium, Blood 3.1 mmol/L (3.5-5.5); Sodium, Blood 135 mmol/L (136-145)
--- NOTE | 2025-07-30 09:42 | NUR ---
NOTE PT BLOOD PRESSURE THIS AM 99/77. THIS RN WENT TO BREAK, BREAK RN TOOK OVER MEDS THIS AM. BREAK RN REPORTED CHECKING BLOOD PRESSURE BEFORE GIVING BP MEDS. BREAK RN REPORTED PT HAVING BLOOD PRESSURE OF 74/56. BREAK RN CALLED DR TO REPORT BLOOD PRESSURE. BREAK RN REPORTED HOLDING METOPROLOL. THIS RN STARTED PT FLUIDS. LR RUNNING AT WO FOR FIRST 500ML. PT REPORTS MILD LIGHT HEADEDNESS
--- NOTE | 2025-07-30 10:14 | NUR ---
NOTE PT RECEIVED 500ML OF LR WIDE OPEN. THE REMAINING SET AT 150ML/HR PER ORDER.
[2025-07-30] MEDS ORDERED: NS 250 ML IV PRN (13:50)
[2025-07-30] MEDS ORDERED: Magnesium Sul 4 GM/Water100 ML 100 ML IV ONE (14:00)
[2025-07-30] MEDS ORDERED: Potassium Phos/Sodium Phos 250 MG PACK PO SCH (17:00)
--- NOTE | 2025-07-30 19:49 | NUR ---
NEW T-ORDER FOR PORTABLE X-RAY NOW AND MIDODRINE PO 10MG X1 NOW ENTERED TO [employer]. ORDERS RECEIVED FROM THE ON-CALL HOSPITALIST NP. MCDUFFIE @[facility]. [facility] NURSE SHIRLEY NOTIFIED. PT ALSO O2 SAT'S 73% ON RA, NOW PPR ON 2L O2 VIA NC. O2 SAT'S >93%. BED AT THE LOWEST POSITION, CALL LIGHT W/I REACH. CONTINUING PT EDUCATION. PT ASYMPTOMATIC.
--- NOTE | 2025-07-30 19:58 | NUR ---
SHIFT SUMMARY PT A&OX4. PT ADMITTED DUE TO NSTEMI. PT WORKED WITH PT TODAY. PT IN SBA WITH FWW AND GB TO CHAIR. PT USES URINAL. PT HAS HYPOTENSION, REPORTS LIGHTHEADEDNESS. PT REPORTS NO PAIN/CHEST PAIN/SOB. PT GOT 1L OF FLUIDS TODAY FOR LOW BLOOD PRESSURE. PT STARTED ON MIDODRINE TODAY. LAST BP WAS 96/71. TERESA VAZQUEZ NOTIFIED BP POST BOLUS AND FIRST DOSE OF MIDODRINE. PT IN BED, BED IN LOWEST POSITION, CALL LIGHT IN REACH. PT PLEASANT AND INVOLVED IN CARE. PT REPORTS NAUSEA, EATS NOT ADEQUATE. GAVE NAUSEA MEDICATION PRIOR TO DINNER. PT GOT IV POTASSIUM AND IV MAGNESIUM TODAY.
[2025-07-31] VITALS (7 sets, daily range): BP systolic 64–114; BP diastolic 46–77
--- NOTE | 2025-07-31 04:12 | NUR ---
SHIFT SUMMARY AT THE BEGINNING OF THE SHIFT, PT HYPOTENSIVE WITH O2 SAT'S LOW 70'S. NEW ORDER FOR MIDODRINE 10MG X1 ADMINISTERED ORDERED. RECHECK VS EFFECTIVE. O2 @2L VIA NC, SAT'S>95%. PT DENIES SOB. NO EVENTS DURING THE NIGHT HRS, BED AT THE LOWEST LEVEL, CALL LIGHT W/I REACH. PT IS A/O X4 AND COOPERATIVE WITH CARE, ABLE TO MAKE HIS NEEDS KNOWN.
[2025-07-31 04:55] LABS: BASOPHILS ABSOLUTE AUTO 0.01 K/mm3 (0.00-0.23); BASOPHILS PERCENT AUTO 0 % (0-2); EOSINOPHILS ABSOLUTE AUTO 0.01 K/mm3 (0.00-0.68); EOSINOPHILS PERCENT AUTO 0 % (0-6); Hematocrit 32.2 % (37.0-53.0); Hemoglobin 10.5 g/dL (13.5-17.5); IMMATURE GRAN ABSOLUTE AUTO 0.06 K/mm3 (0.00-0.10); IMMATURE GRAN PERCENT AUTO 1 % (0-1); LYMPHOCYTES ABSOLUTE AUTO 0.87 K/mm3 (0.84-5.20); LYMPHOCYTES PERCENT AUTO 19 % (21-46); MONOCYTES ABSOLUTE AUTO 0.20 K/mm3 (0.16-1.47); MONOCYTES PERCENT AUTO 4 % (4-13); Mean Corpuscular HGB Conc 32.6 g/dL (31.5-36.5); Mean Corpuscular Volume 80 fL (80-100); NEUTROPHILS ABSOLUTE AUTO 3.51 K/mm3 (1.96-9.15); NEUTROPHILS PERCENT AUTO 75 % (41-73); NRBC ABSOLUTE 0.00 K/mm3 (0.00-0.02); NRBC Auto 0.0 /100 WBC (0.0-0.2); Platelet Count 183 K/mm3 (150-400); RDW Coefficient Variation 21.4 % (11.7-14.2); RDW Standard Deviation 61.1 fL (35.1-46.3)
[2025-07-31 05:22] LABS: Alanine Aminotransfer (ALT/SGP 14.0 U/L (12-78); Albumin, Blood 2.3 g/dL (3.4-5.0); Albumin/Globulin Ratio 0.8 (0.8-1.8); Anion Gap 8.0 mmol/L (3-11); Aspartate Aminotrans (AST/SGOT 14.0 U/L (12-37); Bilirubin, Total 0.5 mg/dL (0.1-1.0); Blood Urea Nitrogen 8.0 mg/dL (8-24); CO2, Blood 27.0 mmol/L (21-32); Calcium, Blood 8.5 mg/dL (8.5-10.1); Chloride, Blood 105.0 mmol/L (98-108); Creatinine, Blood 0.69 mg/dL (0.60-1.20); Globulin, Blood 3.0 g/dL (2.2-4.0); Glucose, Blood 80.0 mg/dL (70-99); Magnesium, Blood 2.5 mg/dL (1.6-2.4); Potassium, Blood 3.8 mmol/L (3.5-5.5); Sodium, Blood 136.0 mmol/L (136-145); Total Protein, Blood 5.3 g/dL (6.4-8.2)
--- NOTE | 2025-07-31 14:07 | NUR ---
NOTE PT REPORTED " CONSTANT CHEST PAIN TO THIS RN. ALSO HAVING PAIN ON INHALATION." THIS RN TOOK VITALS. PT BLOOD PRESSURE WAS 99/73, PULSE 88. RESPIRATIONS 16. SPO2 99% ON ROOM AIR. TEMP WAS 97.2. DR. MOORE ORDERED EKG AND 25MG OF ATARAX. DR. MOORE REPORTED GO AHEAD AND GIVE MIDODRINE STILL FOR BP." REPORTED TO DR. MOORE MAGNESIUM LEVEL. THIS RN ASKED PT IF WANTS ATARAX ORDER. PT REPORTS "I'VE TAKEN TOO MANY MEDS, I DONT WANT THAT IN MY SYSTEM." REPORTED TO DR. MOORE REF ATARAX AND EKG RESULTS SHOWED, "NSR LOW VOLTAGE QRS CAN'T RULE OUT INFERIOR INFARCT, ABNORMAL ECG." PT IN BED, BED IN LOWEST POSITION, CALL LIGHT IN REACH. KNEE HIGH MALCOLM HOSE APPLIED.
--- NOTE | 2025-07-31 15:58 | NUR ---
NOTE PT WORKED WITH OT. OT REPORTED "USED ABD BINDER WHEN WORKING WITH PT, PT HAD MALCOLM GRADY ON. PT WORKED WITH US AND NOW SITTING UP IN CHAIR, CALL LIGHT IN REACH."
--- NOTE | 2025-07-31 16:13 | NUR ---
Spiritual Care Visit. Pt. is sitting up in a chair when he welcomes my visit. Pt. is pleasant but displays evidence of responding cautiously during life review. Listen with interest and empathy yet Pt. displays evidence of being emotionally guarded. This finger buffs assembler sought to make the Pt. feel that he was cared for, as the Pt. verbalized that he has no family in the area. Pt. verbalized gratitude for the spiritual care visit and welcomed this finger buffs assembler to return.
--- NOTE | 2025-07-31 16:23 | NUR ---
NOTE PT REPORTS RESOLVED CHEST PAIN. PT REPORTS "ITS ALL THAT MEDICARE/MEDICAID TALK."
--- NOTE | 2025-07-31 17:22 | NUR ---
SHIFT SUMMARY PT A&0X4. PT ADMITTED DUE TO NSTEMI. PT SBA WITH FWW AND GB TO CHAIR. PT USES URINAL. PT HAS HYPOTENSION, REPORTS LIGHTHEADEDNESS. EKG COMPLETED TODAY , COPY OF REPORT IN CHART. PT REPORTS NO PAIN/CHEST PAIN/SOB. PT NOW ON 10MG OF MIDODRINE. LAST BP WAS DR. MOORE REPORTED HOLD OFF ON METOPROLOL, MED MAY BE D/C'D. PT REPORTS NO NAUSEA TODAY. PT SEEN BY OT/SPIRITUAL CARE/STRADDLE BUG. PERSON CAME TO TALK ABOUT SIGNING UP FOR MEDICAID TODAY. PT IN CHAIR, PT CALLS APPROPRIATE, CALL LIGHT IN REACH. DR. MOORE TALKED ABOUT GETTING IN CONTACT WITH ONCOLOGY ABOUT PLAN.
[2025-08-01] VITALS (7 sets, daily range): BP systolic 95–115; BP diastolic 69–89
--- NOTE | 2025-08-01 03:38 | NUR ---
SHIFT SUMMARY NO ACUTE EVENTS DURING THIS SHIFT. INCONTINENT OF STOOL, LOOSE LARGE BROWN/YELLOWISH STOOL, ATTENDS IN PLACE. PT DENIES PAIN AND DISCOMFORT. PT IS A/O X4, PLEASANT AND COOPERATIVE WITH CARE. RESTING W/O ACUTE DISTRESS DURING THE NIGHT HRS. PT IS ABLE TO MAKE HIS NEEDS KNOWN. BED AT THE LOWEST POSITION, CALL LIGHT W/I REACH.
[2025-08-01 05:08] LABS: Alanine Aminotransfer (ALT/SGP 14.0 U/L (12-78); Albumin, Blood 2.5 g/dL (3.4-5.0); Albumin/Globulin Ratio 0.8 (0.8-1.8); Anion Gap 7.0 mmol/L (3-11); Aspartate Aminotrans (AST/SGOT 15.0 U/L (12-37); Bilirubin, Total 0.4 mg/dL (0.1-1.0); Blood Urea Nitrogen 10.0 mg/dL (8-24); CO2, Blood 27.0 mmol/L (21-32); Calcium, Blood 8.6 mg/dL (8.5-10.1); Chloride, Blood 104.0 mmol/L (98-108); Creatinine, Blood 0.7 mg/dL (0.60-1.20); Globulin, Blood 3.0 g/dL (2.2-4.0); Glucose, Blood 85.0 mg/dL (70-99); Magnesium, Blood 2.3 mg/dL (1.6-2.4); Potassium, Blood 4.1 mmol/L (3.5-5.5); Sodium, Blood 134.0 mmol/L (136-145); Total Protein, Blood 5.5 g/dL (6.4-8.2)
--- NOTE | 2025-08-01 09:43 | NUR ---
PER SHOT PEENING OPERATOR PT HR 131 AND PT REPORTED DIZZINESS AFTER WAlking to bathroom. pt reclined in bed at this time denies dizziness, vs checked and reported to bedside rn
[2025-08-01 10:49] LABS: BASOPHILS ABSOLUTE AUTO 0.02 K/mm3 (0.00-0.23); BASOPHILS PERCENT AUTO 0 % (0-2); EOSINOPHILS ABSOLUTE AUTO 0.01 K/mm3 (0.00-0.68); EOSINOPHILS PERCENT AUTO 0 % (0-6); Hematocrit 34.6 % (37.0-53.0); Hemoglobin 11.0 g/dL (13.5-17.5); IMMATURE GRAN ABSOLUTE AUTO 0.06 K/mm3 (0.00-0.10); IMMATURE GRAN PERCENT AUTO 1 % (0-1); LYMPHOCYTES ABSOLUTE AUTO 0.65 K/mm3 (0.84-5.20); LYMPHOCYTES PERCENT AUTO 13 % (21-46); MONOCYTES ABSOLUTE AUTO 0.21 K/mm3 (0.16-1.47); MONOCYTES PERCENT AUTO 4 % (4-13); Mean Corpuscular HGB Conc 31.8 g/dL (31.5-36.5); Mean Corpuscular Volume 81 fL (80-100); NEUTROPHILS ABSOLUTE AUTO 4.22 K/mm3 (1.96-9.15); NEUTROPHILS PERCENT AUTO 82 % (41-73); NRBC ABSOLUTE 0.00 K/mm3 (0.00-0.02); NRBC Auto 0.0 /100 WBC (0.0-0.2); Platelet Count 207 K/mm3 (150-400); RDW Coefficient Variation 21.8 % (11.7-14.2); RDW Standard Deviation 63.6 fL (35.1-46.3)
--- NOTE | 2025-08-01 20:30 | NUR ---
SUMMARY- PT A/O X4, USES CALL LIGHT, AMBULATES WITH SBA TO BATHROOM WITH ABD BINDER AND MALCOLM HOSE IN PLACE WITH ALL ACTIVITY. DIZZINESS NOTED ONCE AT 0830 WITH ACTIVITY AND RESOLVED ONCE BACK IN BED. IN BED MOST OF THE DAY EXCEPT FOR BATHROOM. CONTINENT OF URINE IN URINAL, INCONT LOOSE STOOL. MEDICATED WITH IMODIUM THIS AM, DECREASE IN LOOSE STOOL LATER IN SHIFT. TOLERATING FLUIDS AND MIN SOLID FOOD WITH DECREASE APPETITE BUT DENIES NAUSEA. DENIES PAIN. CONT WITH ROUTINE MIDODRINE, HOLDING BP SBP 106/70'S. HR 80'S. PLAN FOR SNF, PT AGREES HE WON'T BE SAFE AT HOME WITH DIZZINESS "THAT WOULD BE AN ACCIDENT WAITING TO HAPPEN". APPLIED FOR MEDICAID YESTERDAY, PALLIATIVE INVOLVED. REORTED TO CORTES JIMÉNEZ
[2025-08-02 04:00] VITALS: BP 108/78
--- NOTE | 2025-08-02 05:21 | NUR ---
SHIFT SUMMARY PATIENT ALERT AND ORIENTED X 4. MAKES NEEDS KNOWN. PATIENT PLEASANT AND COOPERATIVE DURING CARE. NO ACUTE CHANGE DURING THIS SHIFT. VITAL SIGNS STABLE. PATIENT SELF REPOSITIONED THROUGHOUT THE SHIFT. PATIENT SLEPT MOST OF THE NIGHT NO SIGNS OF DISTRESS, RESPIRATION EVEN AND UNLABORED. ADMINISTERED MEDICATIONS PER EMAR. PATIENT USES URINAL AT BEDSIDE. BED LOCKED AND IN LOWEST POSITION. CALL LIGHT WITHIN REACH.
[2025-08-02 06:03] LABS: BASOPHILS ABSOLUTE AUTO 0.02 K/mm3 (0.00-0.23); BASOPHILS PERCENT AUTO 0 % (0-2); EOSINOPHILS ABSOLUTE AUTO 0.02 K/mm3 (0.00-0.68); EOSINOPHILS PERCENT AUTO 0 % (0-6); Hematocrit 32.9 % (37.0-53.0); Hemoglobin 10.4 g/dL (13.5-17.5); IMMATURE GRAN ABSOLUTE AUTO 0.07 K/mm3 (0.00-0.10); IMMATURE GRAN PERCENT AUTO 1 % (0-1); LYMPHOCYTES ABSOLUTE AUTO 1.02 K/mm3 (0.84-5.20); LYMPHOCYTES PERCENT AUTO 20 % (21-46); MONOCYTES ABSOLUTE AUTO 0.23 K/mm3 (0.16-1.47); MONOCYTES PERCENT AUTO 5 % (4-13); Mean Corpuscular HGB Conc 31.6 g/dL (31.5-36.5); Mean Corpuscular Volume 80 fL (80-100); NEUTROPHILS ABSOLUTE AUTO 3.74 K/mm3 (1.96-9.15); NEUTROPHILS PERCENT AUTO 73 % (41-73); NRBC ABSOLUTE 0.00 K/mm3 (0.00-0.02); NRBC Auto 0.0 /100 WBC (0.0-0.2); Platelet Count 228 K/mm3 (150-400); RDW Coefficient Variation 21.5 % (11.7-14.2); RDW Standard Deviation 62.0 fL (35.1-46.3)
[2025-08-02 06:30] LABS: Alanine Aminotransfer (ALT/SGP 14.0 U/L (12-78); Albumin, Blood 2.4 g/dL (3.4-5.0); Albumin/Globulin Ratio 0.8 (0.8-1.8); Anion Gap 10.0 mmol/L (3-11); Aspartate Aminotrans (AST/SGOT 12.0 U/L (12-37); Bilirubin, Total 0.5 mg/dL (0.1-1.0); Blood Urea Nitrogen 12.0 mg/dL (8-24); CO2, Blood 25.0 mmol/L (21-32); Calcium, Blood 8.8 mg/dL (8.5-10.1); Chloride, Blood 104.0 mmol/L (98-108); Creatinine, Blood 0.76 mg/dL (0.60-1.20); Globulin, Blood 3.2 g/dL (2.2-4.0); Glucose, Blood 84.0 mg/dL (70-99); Magnesium, Blood 1.8 mg/dL (1.6-2.4); Potassium, Blood 4.0 mmol/L (3.5-5.5); Sodium, Blood 135.0 mmol/L (136-145); Total Protein, Blood 5.6 g/dL (6.4-8.2)
[2025-08-02 07:34] VITALS: BP 99/79
[2025-08-02 13:02] VITALS: BP 102/76
--- NOTE | 2025-08-02 16:38 | NUR ---
SHIFT SUMMARY PATIENT A&OX4, COOPERATIVE WITH CARE, ALTHOUGH LIKES TO BE LEFT ALONE WHEN POSSIBLE. PATIENT HAS A WAFFLE PAD AWAITING FOR THE PATIENT TO MOVE PER THE PATIENT'S REQUEST. NO COMPLAINTS OR DISTRESS NOTED, CALL LIGHT WITHIN REACH, ABLE TO MAKE NEEDS KNOWN.
[2025-08-02 17:48] VITALS: BP 127/79
--- NOTE | 2025-08-02 18:04 | NUR ---
THIS JOINT SUPERVISOR HAS REVIEWED AND AGREES TO ALL NOTES AND ASSESSMENTS BY RUKHSANA BUTCHER.
[2025-08-02 20:20] VITALS: BP 113/65
[2025-08-03 04:11] VITALS: BP 102/73
--- NOTE | 2025-08-03 04:48 | NUR ---
SHIFT SUMMARY NEW SHIFT EVENTS- NOTHING NEW ON THIS RN S SHIFT. A&Ox4. PLEASANT AND COOPERATIVE WITH CARE. CALLS APPROPRIATELY AND IS ABLE TO ADVOCATE NEEDS EFFECTIVELY. VSS. BREATHING EVEN AND UNLABORED c RA. LLL DIMINISHED ON AUSILTATION. . CONTINENT OF BOWEL AND BLADDER; USES URINAL. TOLERATING DIET. IV PATIENT AND CAPPED. BILATERAL COMPRESSION SOCKS ON LEGS. PT TO USE ABDOMINAL BINDER WHEN UP IN ROOM. THIS DID NOT HAPPEN ON THIS SHIFT. PT DID NOT AMBULATE DURING SHIFT. FFW IN ROOM IF NEEDED. MEDS WHOLE WITH FLUIDS. BED IN LOWEST POSITION, CALL LIGHT WITHIN REACH.
[2025-08-03 06:01] LABS: BASOPHILS ABSOLUTE AUTO 0.02 K/mm3 (0.00-0.23); BASOPHILS PERCENT AUTO 0 % (0-2); EOSINOPHILS ABSOLUTE AUTO 0.02 K/mm3 (0.00-0.68); EOSINOPHILS PERCENT AUTO 0 % (0-6); Hematocrit 31.2 % (37.0-53.0); Hemoglobin 9.9 g/dL (13.5-17.5); IMMATURE GRAN ABSOLUTE AUTO 0.05 K/mm3 (0.00-0.10); IMMATURE GRAN PERCENT AUTO 1 % (0-1); LYMPHOCYTES ABSOLUTE AUTO 0.93 K/mm3 (0.84-5.20); LYMPHOCYTES PERCENT AUTO 16 % (21-46); MONOCYTES ABSOLUTE AUTO 0.31 K/mm3 (0.16-1.47); MONOCYTES PERCENT AUTO 5 % (4-13); Mean Corpuscular HGB Conc 31.7 g/dL (31.5-36.5); Mean Corpuscular Volume 80 fL (80-100); NEUTROPHILS ABSOLUTE AUTO 4.63 K/mm3 (1.96-9.15); NEUTROPHILS PERCENT AUTO 78 % (41-73); NRBC ABSOLUTE 0.00 K/mm3 (0.00-0.02); NRBC Auto 0.0 /100 WBC (0.0-0.2); Platelet Count 231 K/mm3 (150-400); RDW Coefficient Variation 21.5 % (11.7-14.2); RDW Standard Deviation 62.7 fL (35.1-46.3)
[2025-08-03 06:23] LABS: Alanine Aminotransfer (ALT/SGP 14.0 U/L (12-78); Albumin, Blood 2.3 g/dL (3.4-5.0); Albumin/Globulin Ratio 0.8 (0.8-1.8); Anion Gap 6.0 mmol/L (3-11); Aspartate Aminotrans (AST/SGOT 15.0 U/L (12-37); Bilirubin, Total 0.3 mg/dL (0.1-1.0); Blood Urea Nitrogen 15.0 mg/dL (8-24); CO2, Blood 29.0 mmol/L (21-32); Calcium, Blood 8.7 mg/dL (8.5-10.1); Chloride, Blood 103.0 mmol/L (98-108); Creatinine, Blood 0.85 mg/dL (0.60-1.20); Globulin, Blood 3.0 g/dL (2.2-4.0); Glucose, Blood 107.0 mg/dL (70-99); Magnesium, Blood 1.8 mg/dL (1.6-2.4); Potassium, Blood 4.0 mmol/L (3.5-5.5); Sodium, Blood 134.0 mmol/L (136-145); Total Protein, Blood 5.3 g/dL (6.4-8.2)
[2025-08-03 08:14] VITALS: BP 106/79
[2025-08-03] MEDS ORDERED: JARDIANCE10 MG PO (15:03)
[2025-08-03] MEDS ORDERED: ELIQUIS2.5 MG PO (15:03)
[2025-08-03] MEDS ORDERED: MIDO5 PO (15:04)
--- NOTE | 2025-08-03 17:55 | NUR ---
DISCHARGE NOTE PATIENT DISCHARGED WITH ALL BELONGINGS. PATIENT STATED UNDERSTANDING OF DISCHARGE INSTRUCTIONS. PATIENT WAS TAKEN VIA WHEELCHAIR TO THE LOBBY TO MEET TAXI. PATIENT HAD NO COMPLAINTS AT THE TIME OF DISCHARGE.
== END 2025-08-03 17:37 | disposition home health service (06) | DRG 91 ==
LOC: ER 06:03 → ERHOLD 09:01 → MEDS 09:01 → PCU 09:01 → MEDS 07-23 18:10
PROVIDERS: Family Medicine; Hospitalist; Internal Medicine Endocrinology, Diabetes & Metabolism; Student in an Organized Health Care Education/Training Program; ADMIT Family Medicine
PROC: 3E02340 Introduction of Influenza Vaccine into Muscle, Percutaneous Approach (ICD-10-PCS; 2025-07-20)
PROC: 0T9B70Z Drainage of Bladder with Drainage Device, Via Natural or Artificial Opening (ICD-10-PCS; principal; 2025-07-22)
DX: G90.A Postural orthostatic tachycardia syndrome [POTS] (principal); I21.A1 Myocardial infarction type 2; I82.220 Acute embolism and thrombosis of inferior vena cava; C64.1 Malignant neoplasm of right kidney, except renal pelvis; C78.7 Secondary malignant neoplasm of liver and intrahepatic bile duct; C78.00 Secondary malignant neoplasm of unspecified lung; R64 Cachexia; E87.20 Acidosis, unspecified; N39.0 Urinary tract infection, site not specified; K92.1 Melena; I50.20 Unspecified systolic (congestive) heart failure; C79.51 Secondary malignant neoplasm of bone; Z66 Do not resuscitate; R55 Syncope and collapse; E88.89 Other specified metabolic disorders; Z96.643 Presence of artificial hip joint, bilateral; I49.3 Ventricular premature depolarization; E86.0 Dehydration; E87.6 Hypokalemia; T73.0XXA Starvation, initial encounter; I48.0 Paroxysmal atrial fibrillation; E11.9 Type 2 diabetes mellitus without complications; E78.5 Hyperlipidemia, unspecified; R79.89 Other specified abnormal findings of blood chemistry; I10 Essential (primary) hypertension; R33.9 Retention of urine, unspecified; R53.81 Other malaise; N40.1 Benign prostatic hyperplasia with lower urinary tract symptoms; B95.2 Enterococcus as the cause of diseases classified elsewhere; D50.0 Iron deficiency anemia secondary to blood loss (chronic); R19.7 Diarrhea, unspecified; F41.9 Anxiety disorder, unspecified; Z79.85 Long-term (current) use of injectable non-insulin antidiabetic drugs; Z79.4 Long term (current) use of insulin; Z68.24 Body mass index [BMI] 24.0-24.9, adult; Z91.148 Patient's other noncompliance with medication regimen for other reason; Z79.84 Long term (current) use of oral hypoglycemic drugs; Z79.899 Other long term (current) drug therapy
CPT/HCPCS: 36415; 51701; 70450; 71045; 71275; 72125; 74177; 78452; 80048; 80053; 80061; 80069; 81001; 82550; 82947; 83735; 83880; 84100; 84443; 84484; 85014; 85018; 85025; 87077; 87086; 87186; 87507; 93005; 93010; 93017; 93306; 96360; 97110; 97112; 97116; 97162; 97165; 97530; 97535; 99285-25; A9270; A9500; J0706; J1650; J1815; J2405; J2785; J3475; J3480; J7030; J7040; J7050; J7120; Q9967

== ENCOUNTER 2025-08-03 18:15 | Observation (INO) | payer MEDICARE ==
[~2025-08-03] VITALS: Ht 172.7 cm; Wt 68.0 kg
[~2025-08-03 18:15] MED LIST: AMLO10 PO; ATOR20 PO; BASAGLAR K100 UNIT/1 SC; ELIQUIS2.5 MG PO; JARDIANCE10 MG PO; METF500 PO; MIDO5 PO; TAMS.4ER PO; ZESTORETIC 20-121 EA PO
[2025-08-03] MEDS ORDERED: FLU VACC TS2025(65UP)/MF59C/PF 45 MCG/0.5 ML SYRINGE IM SCH (20:55)
--- NOTE | 2025-08-03 23:34 | NUR ---
DR BETTENCOURT CALLED ABOUT STATUS OF PT BEING READMITTED FOR INCREASED WEAKNESS, UPDATED AND WILL SEE PT IN AM.
[2025-08-04 04:10] VITALS: BP 127/86
--- NOTE | 2025-08-04 04:54 | NUR ---
SHIFT SUMMARY NOC PT A/O X 4. PLEASANT AND COOPERATIVE WITH CARE. VSS. PT READMIT SAME DAY FROM DISCHARGE DUE TO FACT THAT PT DID NOT BELIEVE THAT GOING HOME WAS SAFE DUE TO CONTINUING OVERALL WEAKNESS. HOME MEDS RECONCILED. PT HAS CARE MANAGEMENT HOME HEALTH REFERRAL ORDERED, SO THAT PT WILL BY ABLE TO CONTINUE TAKING KEYTRUDA FOR RENAL CANCER TREATMENT AT HOME. DR BETTENCOURT CALLED DURING SHIFT TO CHECK TO SEE HOW PT WAS DOING AND WHY THEY WERE READMITTED, HE NOTED THAT HE WILL COME TO SEE PT ON UNIT TODAY. PT CURRENTLY RESTING WITH BED IN LOWEST POSITION, AND CALL LIGHT WITHIN REACH.
[2025-08-04 07:18] VITALS: BP 106/76
[2025-08-04] MEDS ORDERED: Insulin Human Lispro 100 Units/ML 3ML Syringe SC SCH (07:30)
[2025-08-04 13:14] VITALS: BP 104/73
[2025-08-04 15:48] VITALS: BP 109/70
--- NOTE | 2025-08-04 18:15 | NUR ---
End of shift summary: Patient is alert and oriented x4; cooperative with care. Patient with no acute changes this shift. Patient denied SOB, CP, N/V/D or pain today. All medications administered per EMAR. Plan to DC to SNF discussed with patient and he tentatively is agreeable, but requested Wednesday. Utilizing call light appropriately; call light within reach and bed in lowest position. Will continue to monitor until next shift nurse arrives and report is given.
[2025-08-04 19:51] VITALS: BP 116/82
[2025-08-05 04:12] VITALS: BP 104/83
--- NOTE | 2025-08-05 05:34 | NUR ---
SHIFT SUMMARY NOC PT A/O X 4. PLEASANT AND COOPERATIVE WITH CARE. VSS. DURING CHANGE OF SHIFT REPORT PT STATED THAT DURING DAY SHIFT THAT THEY GOT UP INDEPENDENTLY OOB WITH FWW AND WALKED TO BATHROOM, DAY RN WAS NOT AWARE, SO UNSURE IF PT WAS BEING TRUTHFUL, BECAUSE PT IS REFUSING TO GET OOB. NO ACUTE EVENTS OTHERWISE. PT HAS BEEN ACCEPTED AND AGREED TO GO TO [facility] FOR REHAB TO GET STRONGER, BUT STILL HAS CONCERNS ABOUT NOT BEING ABLE TO TAKE HIS KEYTRUDA FOR CANCER TREATMENT WHILE THERE. PT CURRENTLY RESTING READING HIS BOOK, WITH BED IN LOWEST POSITION, AND CALL LIGHT WITHIN REACH.
[2025-08-05 05:42] LABS: BASOPHILS ABSOLUTE AUTO 0.02 K/mm3 (0.00-0.23); BASOPHILS PERCENT AUTO 0 % (0-2); EOSINOPHILS ABSOLUTE AUTO 0.02 K/mm3 (0.00-0.68); EOSINOPHILS PERCENT AUTO 0 % (0-6); Hematocrit 29.6 % (37.0-53.0); Hemoglobin 9.4 g/dL (13.5-17.5); IMMATURE GRAN ABSOLUTE AUTO 0.05 K/mm3 (0.00-0.10); IMMATURE GRAN PERCENT AUTO 1 % (0-1); LYMPHOCYTES ABSOLUTE AUTO 1.17 K/mm3 (0.84-5.20); LYMPHOCYTES PERCENT AUTO 19 % (21-46); MONOCYTES ABSOLUTE AUTO 0.40 K/mm3 (0.16-1.47); MONOCYTES PERCENT AUTO 7 % (4-13); Mean Corpuscular HGB Conc 31.8 g/dL (31.5-36.5); Mean Corpuscular Volume 81 fL (80-100); NEUTROPHILS ABSOLUTE AUTO 4.41 K/mm3 (1.96-9.15); NEUTROPHILS PERCENT AUTO 73 % (41-73); NRBC ABSOLUTE 0.00 K/mm3 (0.00-0.02); NRBC Auto 0.0 /100 WBC (0.0-0.2); Platelet Count 308 K/mm3 (150-400); RDW Coefficient Variation 22.0 % (11.7-14.2); RDW Standard Deviation 64.1 fL (35.1-46.3)
[2025-08-05 06:19] LABS: Alanine Aminotransfer (ALT/SGP 19.0 U/L (12-78); Albumin, Blood 2.3 g/dL (3.4-5.0); Albumin/Globulin Ratio 0.7 (0.8-1.8); Anion Gap 9.0 mmol/L (3-11); Aspartate Aminotrans (AST/SGOT 18.0 U/L (12-37); Bilirubin, Total 0.3 mg/dL (0.1-1.0); Blood Urea Nitrogen 19.0 mg/dL (8-24); CO2, Blood 24.0 mmol/L (21-32); Calcium, Blood 8.7 mg/dL (8.5-10.1); Chloride, Blood 103.0 mmol/L (98-108); Creatinine, Blood 0.81 mg/dL (0.60-1.20); Globulin, Blood 3.4 g/dL (2.2-4.0); Glucose, Blood 81.0 mg/dL (70-99); Potassium, Blood 3.4 mmol/L (3.5-5.5); Sodium, Blood 133.0 mmol/L (136-145); Total Protein, Blood 5.7 g/dL (6.4-8.2)
[2025-08-05 08:12] VITALS: BP 115/79
--- NOTE | 2025-08-05 12:34 | NUR ---
Patient discharged to [facility] for PT/OT. Patient belongings packed and in patient possession upon leaving. [facility] and transporting by [facility]. Report given to RUKHSANA Retana at [facility], IV removed and intact without redness or swelling noted. 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
== END 2025-08-05 12:23 ==
LOC: ER 18:15 → MEDS 20:52
PROVIDERS: Family Medicine; ADMIT Student in an Organized Health Care Education/Training Program
DX: R53.1 Weakness (principal); C64.1 Malignant neoplasm of right kidney, except renal pelvis; C78.01 Secondary malignant neoplasm of right lung; C78.02 Secondary malignant neoplasm of left lung; C78.7 Secondary malignant neoplasm of liver and intrahepatic bile duct; R55 Syncope and collapse; I82.220 Acute embolism and thrombosis of inferior vena cava; I48.20 Chronic atrial fibrillation, unspecified; I50.23 Acute on chronic systolic (congestive) heart failure; N39.0 Urinary tract infection, site not specified; B95.2 Enterococcus as the cause of diseases classified elsewhere; D50.0 Iron deficiency anemia secondary to blood loss (chronic); E11.9 Type 2 diabetes mellitus without complications; N40.0 Benign prostatic hyperplasia without lower urinary tract symptoms; G90.A Postural orthostatic tachycardia syndrome [POTS]; E78.5 Hyperlipidemia, unspecified; Z79.01 Long term (current) use of anticoagulants; Z79.4 Long term (current) use of insulin; Z79.84 Long term (current) use of oral hypoglycemic drugs; Z79.899 Other long term (current) drug therapy; Z96.643 Presence of artificial hip joint, bilateral
CPT/HCPCS: 36415; 80053; 82947; 85025; 93005; 93010; 99285-25; A9270; G0378